=== PATIENT | male | born 1965 | race Caucasian/White ===

== ENCOUNTER → 2021-01-22 | Outpatient (CLI) | payer BC | LOC: US 14:18 | PROVIDERS: ATTEND Internal Medicine Gastroenterology | DX: R74.8 Abnormal levels of other serum enzymes (principal) | CPT/HCPCS: 76705 ==

== ENCOUNTER → 2021-02-06 | Day surgery (SDC) | payer BC ==
[~2021-02-06] MED LIST: CALCIUM PO; EPINEPHRINE HCL 1:1000 1ML 1 MG/ML AMP ONE; LIDOCAINE HCL 2% LOCAL INJ 5 ML SDV VIAL INJ ONE; MIDAZOLAM HCL 2 MG/2 ML VIAL ONE; OMEGA 3 FISH O1 EACH PO; PROPOFOL IV EMULSION 10 MG/ML 20 ML VIAL ONE; SUBOXONE 8 MG-1 EAC2 SL; TADALAFIL5 MG PO; VITAMIN C500 MG PO; VITAMIN D3 PO; ZINC PO
[2021-02-06 17:00] VITALS: BP 126/70
== END | disposition home or self-care (01) ==
LOC: OR 01:43
PROVIDERS: ATTEND Internal Medicine Gastroenterology
DX: Z12.11 Encounter for screening for malignant neoplasm of colon (principal); K63.5 Polyp of colon; K57.90 Diverticulosis of intestine, part unspecified, without perforation or abscess without bleeding; J44.9 Chronic obstructive pulmonary disease, unspecified; R03.0 Elevated blood-pressure reading, without diagnosis of hypertension; R74.8 Abnormal levels of other serum enzymes; F17.210 Nicotine dependence, cigarettes, uncomplicated; Z01.810 Encounter for preprocedural cardiovascular examination; Z01.812 Encounter for preprocedural laboratory examination; Z20.822 Contact with and (suspected) exposure to COVID-19; Z85.21 Personal history of malignant neoplasm of larynx; Z92.3 Personal history of irradiation
CPT/HCPCS: 45381; 45385; 93005; J0171; J2001; J2250; J2704; U0002

== ENCOUNTER 2021-08-11 16:08 | Emergency (ER) | payer SELFPAY ==
[~2021-08-11] VITALS: Ht 175.3 cm; Wt 65.3 kg
[~2021-08-11 16:08] MED LIST changes: -EPINEPHRINE HCL 1:1000 1ML 1 MG/ML AMP ONE; -LIDOCAINE HCL 2% LOCAL INJ 5 ML SDV VIAL INJ ONE; -MIDAZOLAM HCL 2 MG/2 ML VIAL ONE; -PROPOFOL IV EMULSION 10 MG/ML 20 ML VIAL ONE
== END 2021-08-11 17:40 | disposition home or self-care (01) ==
LOC: ER 16:38
DX: J02.9 Acute pharyngitis, unspecified (principal); Z20.822 Contact with and (suspected) exposure to COVID-19; Z85.818 Personal history of malignant neoplasm of other sites of lip, oral cavity, and pharynx; F17.210 Nicotine dependence, cigarettes, uncomplicated
CPT/HCPCS: 83518; 87070; 99283; U0002